=== PATIENT | male | born 1985 | race Caucasian/White ===

== ENCOUNTER 2018-02-11 13:21 | Emergency (ER) | payer BC, OTHER, MEDICAID ==
[2018-02-11] MEDS: IBUPROFEN 800 MG TAB PO (14:11)
== END 2018-02-11 15:57 | disposition home or self-care (01) ==
LOC: FTE 13:21
DX: M54.5 Low back pain (principal); M54.2 Cervicalgia; M25.512 Pain in left shoulder
CPT/HCPCS: 72040; 72100; 73030; 99284-25